=== PATIENT | male | born 1960 | race Caucasian/White ===

== ENCOUNTER → 2018-08-14 | Outpatient (CLI) | payer BC ==
[~2018-08-14] MED LIST: ALL100 PO; ALL300 PO; ASPI81TA94 PO; ATOR-1 PO; ATR80PT PO; INDO-21 PO; ORP100 PO
[2018-08-14 09:15] LABS: PLATELET COUNT, AUTOMATED 173 K/uL (150-450)
[2018-08-14 09:34] LABS: LDL CHOLESTEROL 81 mg/dl
== END ==
LOC: LAB 09:01
PROVIDERS: ATTEND Internal Medicine
DX: Z12.5 Encounter for screening for malignant neoplasm of prostate (principal); E78.5 Hyperlipidemia, unspecified; M10.9 Gout, unspecified
CPT/HCPCS: 36415; 81001; 82040; 82247; 82310; 82374; 82435; 82465; 82565; 82947; 83718; 84075; 84132; 84153; 84155; 84295; 84443; 84450; 84460; 84478; 84520; 84550; 85025

== ENCOUNTER → 2018-08-26 | Outpatient (CLI) | payer BC ==
[~2018-08-26] MED LIST changes: +CYCL10TA29 PO; +INDO75CA PO; +TADA20TA33 PO
--- NOTE | 2018-08-26 11:30 | RADIOLOGY IMAGING REPORT ---
FACILITY: [facility] PATIENT NAME: Ricardo Vega : 1960 MR: [id number] V: [id number] EXAM DATE: ORDERING PHYSICIAN: COLLINS SHERMAN TECHNOLOGIST: Location: [facility] [place] Patient: Ricardo Vgea : 1960 Visit/Account:[id number] Date of Sevice: 08/26/2018 Exam type: L-SPINE 2 OR 3 VIEW History: Spasms one month ago, no known injury Comparison: None. Findings: AP and lateral views the lumbar spine demonstrate five nonrib-bearing lumbar type vertebra. There is no demonstration of acute fracture or subluxation. Tiny anterior osteophytes project from the super ior endplates from L2 to L5. IMPRESSION: 1. Very mild spondylotic changes the lumbar spine. If patient's symptoms persist MR may be helpful Report Dictated By: Margarita Zamora MD at 08/26/2018 11:24 AM Report E-Signed By: Margarita Zamora MD at 08/26/2018 11:25 AM WSN:[email or web address]
== END ==
LOC: RAD 08:12
PROVIDERS: ATTEND Internal Medicine
DX: M47.896 Other spondylosis, lumbar region (principal)
CPT/HCPCS: 72100

== ENCOUNTER → 2018-09-02 | Outpatient (CLI) | payer BC | LOC: LAB 09:41 | PROVIDERS: ATTEND Surgery | DX: L81.4 Other melanin hyperpigmentation (principal) | CPT/HCPCS: 88305 ==